=== PATIENT | female | born 1930 | race Caucasian/White ===

== ENCOUNTER 2017-03-04 20:41 | Emergency (ER) | payer OTHER, MEDICARE ==
[2017-03-04 21:29] VITALS: TEMP 98.2
[2017-03-04] MEDS ORDERED: ACETAMINOPHEN 325 MG TAB PO ONE (21:30)
[2017-03-04] MEDS ORDERED: CYCLOBENZAPRINE 10 MG TAB PO ONE (21:59)
[2017-03-04] MEDS ORDERED: DEXAMETHASONE 4 MG/ML VIAL IVP ONE (21:59)
--- NOTE | 2017-03-04 22:04 | EDPHY ---
H & P Smoking Status: Never smoked Time Seen by Provider: 03/04/17 22:00 HPI/ROS: HPI: Ms. Casillas is a 86 yrs, female who presents with Chief Complaint: neck pain Location: posterior neck Quality: pain Duration: upon awakening this morning Signs and Symptoms: no headache, + neck stiffness, no fever, no radiation, no weakness, no mental status changes, no numbness, no tingling Timing: Sudden Severity: Moderate Context: Patient reports that she fell asleep last night in an awkward position , woke up not on her pillow with complaints of posterior neck pain and stiffness. Pain was worsened with attempts to move side to side or up and down. No prior history of injury or cervical degenerative disc disease. Son at bedside provides most of the history Modifying Factors: did Not try any [id number] medications Comment: ROS: Eyes: No blurred vision Respiratory: No shortness of breath, no cough Cardiovascular: No chest pain Gastrointestinal: No nausea, no vomiting no diarrhea Genitourinary: No dysuria Extremities: No myalgias Neurologic: No weakness, no numbness Skin: No rashes Hematologic: No bruising, no bleeding MEDICAL/SURGICAL HISTORY: Rectal mass. eye disorder patient is unsure what it is. Denies any surgical history. Hard of hearing (Gina Gilbert) Social History: Retired. The son lives with her and helps care for her. (Gina Gilbert) Physical Exam: CONSTITUTIONAL: Well-appearing pleasant elderly white female awake and alert, no obvious distress HEENT: Atraumatic and normocephalic, PERRL, EOMI. Tympanic membranes clear. Hard of hearing. Oropharynx clear, no exudate and moist pink mucosa. Airway patent. NECK: Pain with right and left trapezius tenderness at multiple trigger points. Decreased flexion extension and rotation secondary to pain. No midline pain. No lymphadenopathy. No meningismus. Cardiovascular: Normal S1/S2, regular rate, regular rhythm, without murmur rub or gallop. PULMONARY/CHEST: Symmetrical and nontender. Clear to auscultation bilaterally Good air movement. No accessory muscle usage. ABDOMEN: Soft, nondistended, nontender, no rebound, no guarding, no peritoneal signs, no masses or organomegaly. No CVAT. EXTREMITIES: 2/2 pulses, no deformities, no clubbing, no cyanosis or edema. NEUROLOGICAL: no focal neuro deficits. GCS 15. SKIN: Warm and dry, no erythema. no rash. Good capillary refill. (Gina Gilbert) Constitutional: Initial Vital Signs Temperature (C) 36.8 C 03/04/17 21:23 Heart Rate 88 03/04/17 21:23 Respiratory Rate 20 03/04/17 21:23 Blood Pressure 131/70 H 03/04/17 21:23 O2 Sat (%) 94 03/04/17 21:23 O2 Delivery Mode Room Air Allergies/Adverse Reactions: No Known Allergies Allergy (Unverified 03/04/17 21:22) Home Medications: Medication Instructions Recorded Cyclobenzaprine [Flexeril 10 MG 10 mg PO TID PRN #15 tab 03/04/17 (*)] Medical Decision Making ED Course/Re-evaluation: Cervical x-ray ordered Suspect cervical muscle spasm/torticollis Given Tylenol, Flexeril, Decadron with moderate relief Cervical x-rays my read show significant degenerative disc disease Placed in soft collar for comfort, muscle relaxer prn (Gina Gilbert) I did not see this patient while she was in the emergency department. However her care was discussed with the PA while the patient was in the department. I agree with treatment plan and management (Gutierrez Raymundo) Differential Diagnosis: Neck pain including but not limited to muscular pain, herniated disc, spine fracture, tension headache, muscle spasm. (Gina Gilbert) - Data Points Medications Given: Discontinued Medications Acetaminophen (Tylenol) 650 mg PO EDNOW ONE Stop: 03/04/17 21:31 Last Admin: 03/04/17 21:33 Dose: 650 mg Cyclobenzaprine HCl (Flexeril) 10 mg PO EDNOW ONE Stop: 03/04/17 22:00 Last Admin: 03/04/17 22:20 Dose: 10 mg Dexamethasone (Decadron Injection) 8 mg IVP EDNOW ONE Stop: 03/04/17 22:00 Last Admin: 03/04/17 22:20 Dose: 8 mg Departure - Departure Disposition: Home, Routine, Self-Care Clinical Impression: Torticollis, spasmodic, Cervical spine degeneration Condition: Good Instructions: Spasmodic Torticollis (ED) Additional Instructions: The patient wear may wear soft collar up to 1 week but no longer. If pain persists greater than 5-7 days patient is to follow up with primary care provider. The patient may take ibuprofen 60 100 mg with meals every 8 hours as needed for pain as well as Flexeril 3 times a day as needed for muscle spasm. Referrals: Alyssa Costa MD [Primary Care Provider] - As per Instructions Prescriptions: Cyclobenzaprine [Flexeril 10 MG (*)] 10 mg PO TID PRN #15 tab PRN Reason: Spasms
[2017-03-04] MEDS ORDERED: DEXAMETHASONE 4 MG/ML VIAL ONE (22:25)
[2017-03-04 23:29] VITALS: BP 117/79; PULSE 81; RESP 18; O2SAT 93
== END 2017-03-04 23:27 | disposition home or self-care (01) ==
DX: M50.30 Other cervical disc degeneration, unspecified cervical region (principal); G24.3 Spasmodic torticollis
CPT/HCPCS: 72040; 96374; 99284; J1100